=== PATIENT | female | born 1970 ===

== ENCOUNTER 2018-06-24 14:02 | Observation (INO) ==
[2018-06-24] MEDS ORDERED: DEXTROSE 50% 25 GM/50 ML VIAL IV PRN (16:27)
[2018-06-24] MEDS ORDERED: GLUCAGON 1 MG VIAL IM PRN (16:27)
[2018-06-24] MEDS ORDERED: ONDANSETRON 4 MG/2 ML VIAL IV PRN (16:27)
[2018-06-24] MEDS ORDERED: ACETAMINOPHEN 325 MG TABLET PO PRN (16:27)
[2018-06-24] MEDS ORDERED: ENOXAPARIN 30 MG/0.3 ML SYRINGE SUBCUT SCH (16:30)
[2018-06-24] MEDS ORDERED: ALBUTEROL 2.5 MG/3 ML NEB RESP TX PRN (16:49)
[2018-06-24] MEDS: INSULIN REGULAR 100 UNIT/ML SUBCUT SCH ×2 (18:59→20:03)
[2018-06-24] MEDS ORDERED: INSULIN GLARGINE 100 UNIT/ML SUBCUT SCH (21:00)
[2018-06-24] MEDS: FUROSEMIDE 40 MG/4 ML VIAL IV SCH (21:49)
[2018-06-24] MEDS: GABAPENTIN 300 MG CAPSULE PO SCH (21:49)
[2018-06-24] MEDS: glyBURIDE/METFORMIN 5-500 MG TABLET PO SCH (21:54)
[2018-06-25 04:35] LABS: Basophils % 0.3 % (0.0-0.8); Eosinophils # 0.5 10*3/uL (0.0-0.87); Eosinophils % 5.6 % (0.00-10.9); Hematocrit 32.3 VOL% (35.7-47.0); Hemoglobin 10.3 GM/DL (12.0-16.0); Immature Granulocytes Absolute 0.09 #; Lymphocytes # 1.7 10*3/uL (1.4-4.0); Lymphocytes % 18.9 % (21.3-54.2); Mean Corpuscular HGB Conc 31.9 GM/DL (32-36); Mean Corpuscular Volume 91.5 FL (87-102); Mean Platelet Volume 8.8 FL (9.6-12.0); Monocytes % 6.5 % (1.7-12.7); Neutrophils % 67.7 % (38.7-73.9); Platelet Count 265 T/CUMM (130-400); Red Blood Count 3.53 MC/CUMM (3.8-5.5); Red Cell Distribution Width 13.8 % (9.3-17.3); White Blood Count 8.8 T/CUMM (4-12)
[2018-06-25 05:43] LABS: Calcium 8.9 MG/DL (8.5-10.1); Risk Ratio 2.14; Thyroid Stimulating Hormone 2.96 uIU/ml (0.358-3.74); VLDL CHOLESTEROL 25.8 MG/DL
[2018-06-25] MEDS: INSULIN REGULAR 100 UNIT/ML SUBCUT SCH ×4 (08:27→21:39)
[2018-06-25] MEDS ORDERED: METOPROLOL TARTRATE 50 MG TABLET PO SCH (09:00)
[2018-06-25] MEDS ORDERED: INSULIN GLARGINE 100 UNIT/ML SUBCUT SCH (09:00)
[2018-06-25] MEDS ORDERED: SIMVASTATIN 10 MG TABLET PO SCH (09:00)
[2018-06-25] MEDS ORDERED: amLODIPine 10 MG TABLET PO SCH (09:00)
[2018-06-25] MEDS: PANTOPRAZOLE 40 MG TABLET PO SCH (09:36)
[2018-06-25] MEDS: LOSARTAN 50 MG TABLET PO SCH (09:36)
[2018-06-25] MEDS: ASPIRIN EC 81 MG TABLET PO SCH (09:37)
[2018-06-25] MEDS: FUROSEMIDE 40 MG/4 ML VIAL IV SCH ×2 (09:37→21:30)
[2018-06-25] MEDS: glyBURIDE/METFORMIN 5-500 MG TABLET PO SCH ×3 (13:05→18:08)
[2018-06-25] MEDS: POLYETHYLENE GLYCOL POWDER 17 GM PACK PO SCH ×2 (13:39→21:30)
[2018-06-25 15:25] LABS: Troponin I < 0.015 NG/ML (0.00-0.045)
[2018-06-25 18:52] LABS: Troponin I < 0.015 NG/ML (0.00-0.045)
[2018-06-25 20:20] LABS: Troponin I < 0.015 NG/ML (0.00-0.045)
[2018-06-25] MEDS: SIMVASTATIN 10 MG TABLET PO SCH (21:29)
[2018-06-25] MEDS: GABAPENTIN 300 MG CAPSULE PO SCH (21:30)
[2018-06-25] MEDS: ENOXAPARIN 40 MG/0.4 ML SYRINGE SUBCUT SCH (21:30)
[2018-06-25] MEDS: METOPROLOL TARTRATE 50 MG TABLET PO SCH (22:09)
[2018-06-26 05:11] LABS: Basophils % 0.5 % (0.0-0.8); Eosinophils # 0.4 10*3/uL (0.0-0.87); Eosinophils % 5.8 % (0.00-10.9); Hematocrit 30.6 VOL% (35.7-47.0); Immature Granulocytes % 0.8 %; Immature Granulocytes Absolute 0.06 #; Lymphocytes # 1.6 10*3/uL (1.4-4.0); Lymphocytes % 22.2 % (21.3-54.2); Mean Corpuscular HGB Conc 32.7 GM/DL (32-36); Mean Corpuscular Volume 90.3 FL (87-102); Monocytes % 7.1 % (1.7-12.7); Neutrophils % 63.6 % (38.7-73.9); Platelet Count 277 T/CUMM (130-400); Red Blood Count 3.39 MC/CUMM (3.8-5.5); Red Cell Distribution Width 13.6 % (9.3-17.3); White Blood Count 7.3 T/CUMM (4-12)
[2018-06-26 05:31] LABS: Calcium 8.5 MG/DL (8.5-10.1); Osmolality,Calculated 288.5 MOS/KG (273-304)
[2018-06-26] MEDS: POLYETHYLENE GLYCOL POWDER 17 GM PACK PO SCH ×2 (09:30→21:14)
[2018-06-26] MEDS: INSULIN REGULAR 100 UNIT/ML SUBCUT SCH ×4 (09:30→21:13)
[2018-06-26] MEDS: METOPROLOL TARTRATE 50 MG TABLET PO SCH ×2 (09:31→21:14)
[2018-06-26] MEDS: FUROSEMIDE 40 MG/4 ML VIAL IV SCH (09:31)
[2018-06-26] MEDS: glyBURIDE/METFORMIN 5-500 MG TABLET PO SCH ×3 (09:31→16:58)
[2018-06-26] MEDS: hydroCHLOROthiazide 12.5 MG CAPSULE PO SCH (09:31)
[2018-06-26] MEDS: amLODIPine 5 MG TABLET PO SCH (09:31)
[2018-06-26] MEDS: LOSARTAN 50 MG TABLET PO SCH (09:31)
[2018-06-26] MEDS: PANTOPRAZOLE 40 MG TABLET PO SCH (09:31)
[2018-06-26] MEDS: ASPIRIN EC 81 MG TABLET PO SCH (09:31)
[2018-06-26] MEDS ORDERED: BISACODYL 5 MG TABLET PO ONE (11:00)
[2018-06-26] MEDS ORDERED: INSULIN GLARGINE 100 UNIT/ML SUBCUT SCH (21:00)
[2018-06-26] MEDS: ENOXAPARIN 40 MG/0.4 ML SYRINGE SUBCUT SCH (21:13)
[2018-06-26] MEDS: GABAPENTIN 300 MG CAPSULE PO SCH (21:14)
[2018-06-26] MEDS: SIMVASTATIN 10 MG TABLET PO SCH (21:14)
[2018-06-27 05:33] LABS: Basophils % 0.4 % (0.0-0.8); Eosinophils # 0.5 10*3/uL (0.0-0.87); Eosinophils % 5.7 % (0.00-10.9); Hematocrit 29.2 VOL% (35.7-47.0); Hemoglobin 9.5 GM/DL (12.0-16.0); Immature Granulocytes % 0.6 %; Immature Granulocytes Absolute 0.05 #; Lymphocytes % 23.9 % (21.3-54.2); Mean Corpuscular HGB Conc 32.5 GM/DL (32-36); Mean Corpuscular Volume 90.1 FL (87-102); Mean Platelet Volume 8.9 FL (9.6-12.0); Monocytes % 6.8 % (1.7-12.7); Neutrophils % 62.6 % (38.7-73.9); Platelet Count 262 T/CUMM (130-400); Red Blood Count 3.24 MC/CUMM (3.8-5.5); Red Cell Distribution Width 13.4 % (9.3-17.3); White Blood Count 8.4 T/CUMM (4-12)
[2018-06-27 05:59] LABS: Calcium 8.3 MG/DL (8.5-10.1); Osmolality,Calculated 287.5 MOS/KG (273-304)
[2018-06-27 06:06] LABS: Osmolality,Calculated 288.5 MOS/KG (273-304)
[2018-06-27] MEDS ORDERED: FUROSEMIDE 40 MG TABLET PO SCH (09:00)
[2018-06-27] MEDS: INSULIN REGULAR 100 UNIT/ML SUBCUT SCH ×2 (10:02→12:10)
[2018-06-27] MEDS: glyBURIDE/METFORMIN 5-500 MG TABLET PO SCH ×3 (10:03→12:11)
[2018-06-27] MEDS: LOSARTAN 50 MG TABLET PO SCH (10:03)
[2018-06-27] MEDS: hydroCHLOROthiazide 12.5 MG CAPSULE PO SCH (10:03)
[2018-06-27] MEDS: ASPIRIN EC 81 MG TABLET PO SCH (10:03)
[2018-06-27] MEDS: PANTOPRAZOLE 40 MG TABLET PO SCH (10:03)
[2018-06-27] MEDS: amLODIPine 5 MG TABLET PO SCH (10:03)
[2018-06-27] MEDS: POLYETHYLENE GLYCOL POWDER 17 GM PACK PO SCH (10:04)
[2018-06-27] MEDS: METOPROLOL TARTRATE 50 MG TABLET PO SCH (10:04)
[2018-06-27 12:13] VITALS: BP 184/83
== END 2018-06-27 12:48 | disposition home or self-care (01) ==
LOC: EDBD → EDUNIT# → N.EDINP 14:02 → N.ED 14:02 → SUATTDRO 16:27 → N.2E 19:03
PROVIDERS: ADMIT Hospitalist; ATTEND Hospitalist

== ENCOUNTER 2019-04-06 13:05 | Inpatient (IN) ==
[2019-04-06] MEDS ORDERED: LIDOCAINE 1%/EPI INJ 20 ML VIAL ONE (13:46)
[2019-04-06 13:52] LABS: Basophils # 0.1 10*3/uL (0.0-0.2); Basophils % 0.5 % (0.0-0.8); Eosinophils # 0.4 10*3/uL (0.0-0.87); Eosinophils % 2.5 % (0.00-10.9); Hematocrit 32.7 VOL% (35.7-47.0); Hemoglobin 11.1 GM/DL (12.0-16.0); Immature Granulocytes % 1.4 %; Immature Granulocytes Absolute 0.22 #; Lymphocytes # 3.5 10*3/uL (1.4-4.0); Lymphocytes % 22.2 % (21.3-54.2); Mean Corpuscular HGB Conc 33.9 GM/DL (32-36); Mean Corpuscular Volume 86.1 FL (87-102); Monocytes % 5.9 % (1.7-12.7); Neutrophils % 67.5 % (38.7-73.9); Platelet Count 408 T/CUMM (130-400); Red Cell Distribution Width 13.5 % (9.3-17.3); White Blood Count 15.9 T/CUMM (4-12)
[2019-04-06] MEDS ORDERED: CLINDAMYCIN INJ 600 MG in PREMIX 1 EACH IV STA (14:07)
[2019-04-06 14:12] LABS: Alanine Aminotransferase 13 U/L (13-56); Albumin 1.7 G/DL (3.4-5.0); Alkaline Phosphatase 181 U/L (45-117); Aspartate Amino Transferase 14 U/L (0-37); Bilirubin,Total < 0.39 MG/DL (0.2-1.0); Blood Urea Nitrogen 24 MG/DL (7-18); Calcium 8.8 MG/DL (8.5-10.1); Estimated Glom Filtration Rate 53 ML/MIN; Glucose 82 MG/DL (74-106); Osmolality,Calculated 277.7 MOS/KG (273-304); Total Protein 7.1 G/DL (6.4-8.3)
[2019-04-06] MEDS ORDERED: POTASSIUM CHLORIDE 20 MEQ TABLET PO STA ×2 (14:16→15:02)
[2019-04-06] MEDS ORDERED: GLUCAGON 1 MG VIAL IM PRN (14:57)
[2019-04-06] MEDS ORDERED: BISACODYL 5 MG TABLET PO PRN (14:57)
[2019-04-06] MEDS ORDERED: ONDANSETRON 4 MG/2 ML VIAL IV PRN (14:57)
[2019-04-06] MEDS ORDERED: DEXTROSE 10% 25 GM/250 ML BAG IV PRN (14:57)
[2019-04-06] MEDS ORDERED: MAGNESIUM SULF RIDER 4 GM in PREMIX 1 EACH IV PRN (15:02)
[2019-04-06] MEDS ORDERED: MAGNESIUM SULF RIDER 2 GM in PREMIX 1 EACH IV PRN (15:02)
[2019-04-06 15:35] LABS: Risk Ratio 3.78; VLDL CHOLESTEROL 45.8 MG/DL
[2019-04-06] MEDS: ENOXAPARIN 40 MG/0.4 ML SYRINGE SUBCUT SCH (15:37)
[2019-04-06] MEDS: INSULIN LISPRO 100 UNIT/ML SUBCUT SCH ×2 (16:46→21:02)
[2019-04-06] MEDS: cefTRIAXone 1,000 MG in SYRINGE 1 EACH IV SCH (17:06)
[2019-04-06] MEDS: SODIUM CHLORIDE 0.9% 1,000 ML IV SCH (17:10)
[2019-04-07] MEDS: SODIUM CHLORIDE 0.9% 1,000 ML IV SCH ×3 (03:32→22:22)
[2019-04-07 06:22] LABS: Basophils % 0.4 % (0.0-0.8); Eosinophils # 0.3 10*3/uL (0.0-0.87); Eosinophils % 3.4 % (0.00-10.9); Hematocrit 27.9 VOL% (35.7-47.0); Hemoglobin 9.2 GM/DL (12.0-16.0); Immature Granulocytes % 0.9 %; Immature Granulocytes Absolute 0.09 #; Lymphocytes # 1.8 10*3/uL (1.4-4.0); Lymphocytes % 18.3 % (21.3-54.2); Mean Corpuscular Volume 87.7 FL (87-102); Mean Platelet Volume 9.2 FL (9.6-12.0); Monocytes % 5.9 % (1.7-12.7); Neutrophils % 71.1 % (38.7-73.9); Platelet Count 299 T/CUMM (130-400); Red Blood Count 3.18 MC/CUMM (3.8-5.5); Red Cell Distribution Width 13.6 % (9.3-17.3); White Blood Count 9.9 T/CUMM (4-12)
[2019-04-07 06:38] LABS: Osmolality,Calculated 290.7 MOS/KG (273-304)
[2019-04-07] MEDS: INSULIN LISPRO 100 UNIT/ML SUBCUT SCH ×7 (08:57→22:21)
[2019-04-07] MEDS: hydroCHLOROthiazide 12.5 MG CAPSULE PO SCH (08:58)
[2019-04-07] MEDS: LOSARTAN 50 MG TABLET PO SCH (08:58)
[2019-04-07] MEDS: amLODIPine 5 MG TABLET PO SCH (08:58)
[2019-04-07] MEDS: METOPROLOL TARTRATE 50 MG TABLET PO SCH (08:58)
[2019-04-07] MEDS ORDERED: INSULIN GLARGINE 100 UNIT/ML SUBCUT SCH ×2 (09:00→21:00)
[2019-04-07] MEDS: MAGNESIUM OXIDE 400 MG TABLET PO SCH (12:38)
[2019-04-07] MEDS: cefTRIAXone 1,000 MG in SYRINGE 1 EACH IV SCH (16:41)
[2019-04-07] MEDS: ENOXAPARIN 40 MG/0.4 ML SYRINGE SUBCUT SCH (16:41)
[2019-04-07] MEDS ORDERED: LIDOCAINE 2% 20 ML VIAL MISC INJ ONE (17:36)
[2019-04-07] MEDS: INSULIN GLARGINE 100 UNIT/ML SUBCUT SCH (22:21)
[2019-04-08] MEDS ORDERED: LIDOCAINE 2% 20 ML VIAL MISC INJ ONE (06:00)
[2019-04-08] MEDS: SODIUM CHLORIDE 0.9% 1,000 ML IV SCH (07:31)
[2019-04-08] MEDS: hydroCHLOROthiazide 12.5 MG CAPSULE PO SCH (09:23)
[2019-04-08] MEDS: LOSARTAN 50 MG TABLET PO SCH (09:23)
[2019-04-08] MEDS: amLODIPine 5 MG TABLET PO SCH (09:24)
[2019-04-08] MEDS: INSULIN GLARGINE 100 UNIT/ML SUBCUT SCH (09:24)
[2019-04-08] MEDS: METOPROLOL TARTRATE 50 MG TABLET PO SCH (09:24)
[2019-04-08] MEDS: INSULIN LISPRO 100 UNIT/ML SUBCUT SCH ×4 (09:25→13:14)
[2019-04-08 12:56] VITALS: BP 161/72
[2019-04-08] MEDS: MAGNESIUM OXIDE 400 MG TABLET PO SCH (13:14)
[2019-04-11] MEDS ORDERED: ERGOCALCIFEROL 50,000 UNIT CAPSULE PO SCH (09:00)
== END 2019-04-08 13:34 | disposition home or self-care (01) | DRG 982 ==
LOC: EDUNIT# → EDBD → N.ED 13:05 → N.EDINP 14:57 → SUATTDRO 14:57 → N.5E 15:14
PROVIDERS: ADMIT Internal Medicine; ATTEND Internal Medicine

== ENCOUNTER 2019-10-25 22:10 | Inpatient (IN) ==
[2019-10-26] MEDS ORDERED: DEXTROSE 50% 25 GM/50 ML VIAL IV PRN (01:52)
[2019-10-26] MEDS ORDERED: ALUMINUM/MAGNES/SIMETH MAX STR 30 ML UDCUP PO PRN (01:52)
[2019-10-26] MEDS ORDERED: hydrALAZINE 20 MG/1 ML VIAL IV PRN (01:52)
[2019-10-26] MEDS ORDERED: ONDANSETRON 4 MG/2 ML VIAL IV PRN (01:52)
[2019-10-26] MEDS ORDERED: GLUCAGON 1 MG VIAL IM PRN (01:52)
[2019-10-26] MEDS ORDERED: NICOTINE 21 MG/24 HR PATCH TRANSDERM PRN (01:52)
[2019-10-26] MEDS ORDERED: MORPHINE 4 MG/1 ML VIAL IV PRN (01:52)
[2019-10-26 02:37] LABS: Basophils # 0.1 10*3/uL (0.0-0.2); Basophils % 0.5 % (0.0-0.8); Eosinophils # 0.5 10*3/uL (0.0-0.87); Eosinophils % 5.6 % (0.00-10.9); Hematocrit 30.9 VOL% (35.7-47.0); Hemoglobin 10.5 GM/DL (12.0-16.0); Immature Granulocytes % 0.5 %; Immature Granulocytes Absolute 0.05 #; Lymphocytes % 21.9 % (21.3-54.2); Mean Corpuscular Volume 88.5 FL (87-102); Mean Platelet Volume 8.8 FL (9.6-12.0); Monocytes % 5.2 % (1.7-12.7); Neutrophils % 66.3 % (38.7-73.9); Platelet Count 256 T/CUMM (130-400); Red Blood Count 3.49 MC/CUMM (3.8-5.5); White Blood Count 9.3 T/CUMM (4-12)
[2019-10-26 03:06] LABS: Alanine Aminotransferase 15 U/L (13-56); Albumin 1.6 G/DL (3.4-5.0); Alkaline Phosphatase 131 U/L (45-117); Aspartate Amino Transferase 19 U/L (0-37); Bilirubin,Total < 0.39 MG/DL (0.2-1.0); Blood Urea Nitrogen 29 MG/DL (7-18); Calcium 8.4 MG/DL (8.5-10.1); Estimated Glom Filtration Rate 28 ML/MIN; Glucose 230 MG/DL (74-106); HDL Cholesterol 57 MG/DL (40-60); Osmolality,Calculated 291.4 MOS/KG (273-304); Risk Ratio 3.86; Total Protein 6.6 G/DL (6.4-8.3); Triglycerides 244 MG/DL (2-150); VLDL CHOLESTEROL 48.8 MG/DL
[2019-10-26 06:44] LABS: Apearance,Urine CLEAR (Clear); Bacteria,Urine Occasional /HPF (Few); Bilirubin,Urine Negative (Negative); Blood, Urine Small mg/dL (Negative); Glucose,Urine (UA) >=500 mg/dL (Negative); Hyaline Casts,Urine 1 /LPF (0-3); Ketones,Urine Negative (Negative); Mucus,Urine Occasional /LPF (Occasional); Nitrite,Urine Negative (Negative); Protein,Urine >=500 MG/DL; RBC,Urine 14 /HPF (0-4); Squamous Epithelial Cell,Urine Occasional /HPF (0-10); Urine Color Straw (Yellow); Urine Urobilinogen < 2.0 EU/DL (0.2-1.0); WBC,Urine 1 /HPF (0-6)
[2019-10-26] MEDS: ALBUTEROL/IPRATROPIUM 3 ML NEB RESP TX SCH ×3 (07:11→18:52)
[2019-10-26] MEDS ORDERED: METOPROLOL TARTRATE 50 MG TABLET PO SCH (09:00)
[2019-10-26] MEDS: INSULIN GLARGINE 100 UNIT/ML SUBCUT SCH ×2 (09:23→20:20)
[2019-10-26] MEDS: INSULIN REGULAR 100 UNIT/ML SUBCUT SCH ×4 (09:23→20:20)
[2019-10-26] MEDS: FUROSEMIDE 40 MG/4 ML VIAL IV SCH (09:24)
[2019-10-26] MEDS: hydrALAZINE 25 MG TABLET PO SCH ×3 (09:25→20:20)
[2019-10-26] MEDS: ISOSORBIDE MONONITRATE 30 MG TABLET PO SCH (09:25)
[2019-10-26] MEDS: ACETAMINOPHEN 325 MG TABLET PO PRN ×2 (09:28→15:27)
[2019-10-26] MEDS: NEBIVOLOL 5 MG TABLET PO SCH (20:20)
[2019-10-27] MEDS: ALBUTEROL/IPRATROPIUM 3 ML NEB RESP TX SCH ×4 (00:50→19:08)
[2019-10-27 06:14] LABS: Basophils # 0.1 10*3/uL (0.0-0.2); Basophils % 0.6 % (0.0-0.8); Eosinophils # 0.4 10*3/uL (0.0-0.87); Eosinophils % 4.7 % (0.00-10.9); Hematocrit 29.3 VOL% (35.7-47.0); Hemoglobin 9.6 GM/DL (12.0-16.0); Immature Granulocytes % 0.7 %; Immature Granulocytes Absolute 0.06 #; Lymphocytes # 1.8 10*3/uL (1.4-4.0); Lymphocytes % 20.7 % (21.3-54.2); Mean Corpuscular HGB Conc 32.8 GM/DL (32-36); Mean Corpuscular Volume 90.4 FL (87-102); Mean Platelet Volume 9.2 FL (9.6-12.0); Monocytes % 5.4 % (1.7-12.7); Neutrophils % 67.9 % (38.7-73.9); Platelet Count 228 T/CUMM (130-400); Red Blood Count 3.24 MC/CUMM (3.8-5.5); Red Cell Distribution Width 14.1 % (9.3-17.3); White Blood Count 8.5 T/CUMM (4-12)
[2019-10-27 06:30] LABS: Calcium 8.2 MG/DL (8.5-10.1); Osmolality,Calculated 291.3 MOS/KG (273-304)
[2019-10-27 06:33] LABS: Calcium 8.1 MG/DL (8.5-10.1); Osmolality,Calculated 293.1 MOS/KG (273-304)
[2019-10-27] MEDS: INSULIN REGULAR 100 UNIT/ML SUBCUT SCH ×4 (09:54→21:33)
[2019-10-27] MEDS: INSULIN GLARGINE 100 UNIT/ML SUBCUT SCH ×2 (09:55→21:32)
[2019-10-27] MEDS: SIMVASTATIN 10 MG TABLET PO SCH (09:55)
[2019-10-27] MEDS: NEBIVOLOL 5 MG TABLET PO SCH ×2 (09:55→21:34)
[2019-10-27] MEDS: ISOSORBIDE MONONITRATE 30 MG TABLET PO SCH (09:55)
[2019-10-27] MEDS: FUROSEMIDE 40 MG/4 ML VIAL IV SCH (09:58)
[2019-10-27] MEDS: ACETAMINOPHEN 325 MG TABLET PO PRN (13:25)
[2019-10-28] MEDS: ALBUTEROL/IPRATROPIUM 3 ML NEB RESP TX SCH ×4 (00:25→20:23)
[2019-10-28 05:35] LABS: Basophils % 0.5 % (0.0-0.8); Eosinophils # 0.4 10*3/uL (0.0-0.87); Eosinophils % 4.9 % (0.00-10.9); Hematocrit 28.5 VOL% (35.7-47.0); Hemoglobin 9.4 GM/DL (12.0-16.0); Immature Granulocytes % 0.7 %; Immature Granulocytes Absolute 0.05 #; Lymphocytes # 1.4 10*3/uL (1.4-4.0); Lymphocytes % 18.2 % (21.3-54.2); Mean Corpuscular Volume 90.8 FL (87-102); Mean Platelet Volume 9.7 FL (9.6-12.0); Monocytes % 5.2 % (1.7-12.7); Neutrophils % 70.5 % (38.7-73.9); Platelet Count 217 T/CUMM (130-400); Red Blood Count 3.14 MC/CUMM (3.8-5.5); Red Cell Distribution Width 14.1 % (9.3-17.3); White Blood Count 7.5 T/CUMM (4-12)
[2019-10-28 05:44] LABS: Calcium 7.9 MG/DL (8.5-10.1); Osmolality,Calculated 294.3 MOS/KG (273-304)
[2019-10-28] MEDS: NEBIVOLOL 5 MG TABLET PO SCH ×2 (10:04→20:55)
[2019-10-28] MEDS: FUROSEMIDE 80 MG TABLET PO SCH (10:05)
[2019-10-28] MEDS: SIMVASTATIN 10 MG TABLET PO SCH (10:05)
[2019-10-28] MEDS: INSULIN GLARGINE 100 UNIT/ML SUBCUT SCH ×2 (10:05→20:55)
[2019-10-28] MEDS: ISOSORBIDE MONONITRATE 30 MG TABLET PO SCH (10:05)
[2019-10-28] MEDS: INSULIN REGULAR 100 UNIT/ML SUBCUT SCH ×4 (10:07→21:00)
[2019-10-28] MEDS: HYDROCORTISONE 1% CREAM 28 GM TUBE TOP SCH (21:00)
[2019-10-29] MEDS: ALBUTEROL/IPRATROPIUM 3 ML NEB RESP TX SCH ×2 (02:35→06:52)
[2019-10-29 06:36] LABS: Basophils % 0.5 % (0.0-0.8); Eosinophils # 0.4 10*3/uL (0.0-0.87); Eosinophils % 5.2 % (0.00-10.9); Hematocrit 29.7 VOL% (35.7-47.0); Hemoglobin 9.4 GM/DL (12.0-16.0); Immature Granulocytes % 1.1 %; Immature Granulocytes Absolute 0.09 #; Lymphocytes # 1.3 10*3/uL (1.4-4.0); Mean Corpuscular HGB Conc 31.6 GM/DL (32-36); Mean Corpuscular Volume 93.4 FL (87-102); Mean Platelet Volume 9.6 FL (9.6-12.0); Monocytes % 6.4 % (1.7-12.7); Neutrophils % 71.8 % (38.7-73.9); Platelet Count 221 T/CUMM (130-400); Red Blood Count 3.18 MC/CUMM (3.8-5.5); Red Cell Distribution Width 14.3 % (9.3-17.3); White Blood Count 8.4 T/CUMM (4-12)
[2019-10-29 07:04] LABS: Calcium 8.3 MG/DL (8.5-10.1); Osmolality,Calculated 300.1 MOS/KG (273-304)
[2019-10-29] MEDS: INSULIN REGULAR 100 UNIT/ML SUBCUT SCH ×2 (08:43→13:59)
[2019-10-29] MEDS: ISOSORBIDE MONONITRATE 30 MG TABLET PO SCH (09:33)
[2019-10-29] MEDS: INSULIN GLARGINE 100 UNIT/ML SUBCUT SCH (09:33)
[2019-10-29] MEDS: SIMVASTATIN 10 MG TABLET PO SCH (09:33)
[2019-10-29] MEDS: NEBIVOLOL 5 MG TABLET PO SCH (09:33)
[2019-10-29] MEDS: FUROSEMIDE 80 MG TABLET PO SCH (09:33)
[2019-10-29] MEDS: HYDROCORTISONE 1% CREAM 28 GM TUBE TOP SCH (09:36)
[2019-10-29] MEDS: ACETAMINOPHEN 325 MG TABLET PO PRN (10:04)
[2019-10-29 13:37] VITALS: BP 138/60
== END 2019-10-29 14:02 | disposition home or self-care (01) | DRG 291 ==
LOC: INTOOBSV 23:32 → N.TELES 23:32 → SUATTDRO 23:32
PROVIDERS: ADMIT Internal Medicine; ATTEND Internal Medicine